=== PATIENT | male | born 1995 | race Hispanic/Latino ===

== ENCOUNTER 2017-05-03 17:22 | Emergency (ER) | payer SELFPAY ==
[2017-05-03] MEDS ORDERED: Adacel Vial IM ONE ×2 (17:45→17:50)
[2017-05-03 18:02] VITALS: PULSE 76; O2SAT 100
--- NOTE | 2017-05-03 18:07 | ERPHSYRPT ---
- History of Present Illness Time Seen by Provider: 05/03/17 18:03 Source: patient Exam Limitations: no limitations Patient Subjective Stated Complaint: PT STATES HE WAS MOVING SOME METAL MATERIALS FOR [employer] AND CUT HIS RIGHT MIDDLE FINGER. Triage Nursing Assessment: PT IS AOX3, RESPS ARE EASY AND NON LABORED, SKIN IS PWD, RADIAL PULSES ARE STRONG AND EQUAL. LACERATION NOTED TO THE RIGHT MIDDLE FINGER. MOBILITY AND SENSATION INTACT. BLEEDING IS CONTROLLED. Physician History: 21 y/o female comes to the ER after slicing his right index finger while moving a piece of metal. Pt admits to having some bleeding and minimal pain. Pt does not remember the last tetanus shot. Timing/Duration: today Quality: painful Severity: moderate Location: hands Possible Causes: other (moving a piece of metal) Modifying Factors: Improves With: other (none) Associated Symptoms: denies symptoms Allergies/Adverse Reactions: No Known Drug Allergies Allergy (Verified 05/03/17 17:35) Home Medications: No Reportable Medications [No Reported Medications] 05/03/17 [History] Hx Tetanus, Diphtheria Vaccination/Date Given: No Hx Influenza Vaccination/Date Given: No Hx Pneumococcal Vaccination/Date Given: No Immunizations Up to Date: Yes - Review of Systems Constitutional: No Fever, No Chills Eyes: No Symptoms Ears, Nose, & Throat: No Symptoms Respiratory: No Cough, No Dyspnea Cardiac: No Chest Pain, No Edema, No Syncope Abdominal/Gastrointestinal: No Abdominal Pain, No Nausea, No Vomiting, No Diarrhea Genitourinary Symptoms: No Dysuria Musculoskeletal: No Back Pain, No Neck Pain Skin: Other (laceration), No Rash Neurological: No Dizziness, No Focal Weakness, No Sensory Changes Psychological: No Symptoms Endocrine: No Symptoms All Other Systems: Reviewed and Negative - Past Medical History Pertinent Past Medical History: No - Past Surgical History Past Surgical History: No - Social History Smoking Status: Never smoker Exposure to second hand smoke: Yes Alcohol Use: None Drug Use: none Patient Lives Alone: No Significant Family History: no pertinent family hx - Nursing Vital Signs Nursing Vital Signs: Initial Vital Signs Pulse Rate 76 05/03/17 18:00 Respiratory Rate 16 05/03/17 18:00 Blood Pressure 134/60 05/03/17 18:00 O2 Sat by Pulse Oximetry 100 05/03/17 18:00 Pain Scale Pain Intensity 0 - Physical Exam General Appearance: no apparent distress, alert Eye Exam: PERRL/EOMI, eyes nml inspection Ears, Nose, Throat Exam: normal ENT inspection, pharynx normal, moist mucous membranes Neck Exam: normal inspection, non-tender, supple, full range of motion Respiratory Exam: normal breath sounds, lungs clear, No respiratory distress Cardiovascular Exam: regular rate/rhythm, normal heart sounds Gastrointestinal/Abdomen Exam: soft, mass, No tenderness Back Exam: normal inspection, normal range of motion, No CVA tenderness, No vertebral tenderness Extremity Exam: normal inspection, normal range of motion Neurologic Exam: alert, oriented x 3, cooperative, normal mood/affect, sensation nml, No motor deficits Skin Exam: normal color, warm, dry, laceration (2 cm linear laceration of right index finger) SpO2 Interpretation: normal SpO2: 100 Oxygen Delivery: Room Air Procedures - Laceration/Wound Repair Right Upper Anterior Medial Proximal Dorsal Hand Wound Length (cm): 2 Wound's Depth, Shape: superficial Wound Explored: clean Irrigated: Yes Hibiclens Prep: Yes Anesthesia: local, 1% Lidocaine Volume Anesthetic (ccs): 8 Wound Debrided: extensive Wound Repaired With: sutures Suture Size/Type: 4-0 Number of Sutures: 7 Layer Closure?: Yes - Course Nursing assessment & vital signs reviewed: Yes Ordered Tests: Medication Summary Discontinued Medications Generic Name Dose Route Start Last Admin Trade Name Manoloq PRN Reason Stop Dose Admin Bacitracin 0.9 gm 05/03/17 18:13 05/03/17 18:14 Baciguent Packet TP 05/03/17 18:14 0.9 gm STAT ONE Administration Diphtheria/Tetanus/Acell Pertussis 0.5 ml 05/03/17 17:45 05/03/17 17:51 Adacel Vial IM 05/03/17 17:46 0.5 ml .ONCE ONE Administration Diphtheria/Tetanus/Acell Pertussis Confirm 05/03/17 17:50 Adacel Vial Administered 05/03/17 17:51 Dose 0.5 ml IM .STK-MED ONE - Progress Progress: improved Progress Note: 05/03/17 18:06 See procedure note - Departure Time of Disposition: 18:06 Departure Disposition: Home Clinical Impression: Finger laceration Qualifiers: Encounter type: initial encounter Finger: index finger Damage to nail status: unspecified Foreign body presence: without foreign body Laterality: right Qualified Code(s): S61.210A - Laceration without foreign body of right index finger without damage to nail, initial encounter Condition: Stable Critical Care Time: No Referrals: DOCTOR,NO FAMILY [Primary Care Provider] - Instructions: Care for a Laceration After Repair Additional Instructions: Go to urgent care to have the stitches taken out in 7 days
[2017-05-03] MEDS ORDERED: BACIGUENT PACKET TP ONE (18:13)
[2017-05-03 18:15] VITALS: BP 127/70
== END 2017-05-03 18:15 | disposition home or self-care (01) ==
LOC: ED 17:22
PROC: 0HQFXZZ Repair Right Hand Skin, External Approach (ICD-10-PCS; principal; 2017-05-03)
DX: S61.210A Laceration without foreign body of right index finger without damage to nail, initial encounter (principal); W45.8XXA Other foreign body or object entering through skin, initial encounter; Y92.61 Building [any] under construction as the place of occurrence of the external cause
CPT/HCPCS: 12001; 90471; 90715; 99283; 99284

== ENCOUNTER 2025-02-17 08:17 | Emergency (ER) | payer OTHER ==
[2025-02-17 08:27] VITALS: TEMP 97.8
[2025-02-17] MEDS ORDERED: Norflex 60 MG/2 ML ONE (08:37)
[2025-02-17] MEDS: TORAdol 30 mg Injection IM ONE (08:37)
[2025-02-17] MEDS ORDERED: TORAdol 30 mg Injection ONE (08:37)
[2025-02-17] MEDS: Norflex 60 MG/2 ML IM ONE (08:38)
--- NOTE | 2025-02-17 09:54 | ERPHSYRPT ---
- History of Present Illness Time Seen by Provider: 02/17/25 08:20 Source: patient, family Exam Limitations: no limitations Patient Subjective Stated Complaint: Pt states "It all started in October, I went sledding with my boys and my lower back has hurt since. I am in therapy and it is not helping, I cannot sleep and it is getting worse." Triage Nursing Assessment: Pt presented alert and oriented X 3, skin pwd pt winces and tears up when he sits, feels better when he stands. Physician History: 29-year-old with history of hypertension, diabetes mellitus, chronic back pain which she was doing pretty good for a while until this October when he slid and his pain got worse. Pain is moderate to severe sharp shooting with radiation to right lower extremity with some tingling sensation but no weakness. No loss of bowel or bladder control, no saddle anesthesia. Patient has been evaluated outpatient and has completed physical therapy with no significant relief. Denies any new fall or trauma. Patient reports previously whenever he had pain muscle relaxants helped him a lot. He is not taking any muscle relaxants currently. Pain is not in the midline but in the right sacroiliac area. Allergies/Adverse Reactions: No Known Drug Allergies Allergy (Verified 09/07/22 07:29) Home Medications: Lisinopril 20 mg [Zestril 20 MG] 20 mg PO DAILY 02/17/25 [History] Hx Tetanus, Diphtheria Vaccination/Date Given: No Hx Influenza Vaccination/Date Given: No Hx Pneumococcal Vaccination/Date Given: No Immunizations Up to Date: No Travel Risk - International Travel Have you traveled outside of the country in past 3 weeks: No - Emerging Infectious Disease Are you exhibiting symptoms associated with any current EIDs: No - Review of Systems Constitutional: No Symptoms Ears, Nose, & Throat: No Symptoms Respiratory: No Symptoms Cardiac: No Symptoms Abdominal/Gastrointestinal: No Symptoms Genitourinary Symptoms: No Symptoms Musculoskeletal: Back Pain Skin: No Symptoms Neurological: No Symptoms Hematologic/Lymphatic: No Symptoms - Past Medical History Pertinent Past Medical History: Yes Neurological History: No Pertinent History Cardiac History: Hypertension Respiratory History: Sleep Apnea Endocrine Medical History: Diabetes Type I, Other Musculoskeletal History: No Pertinent History Other Medical History: FATTY LIVER, MILD LIVER CIRRHOSIS, - Past Surgical History Past Surgical History: No Significant Family History: no pertinent family hx - Social History Smoking Status: Never smoker Exposure to second hand smoke: No Drug Use: none - Social Determinants of Health Will the patient participate in the screening: Declined to provide - Nursing Vital Signs Nursing Vital Signs: Initial Vital Signs Temperature 97.8 F 02/17/25 08:22 Pulse Rate 58 L 02/17/25 08:22 Respiratory Rate 18 02/17/25 08:22 Blood Pressure 154/108 02/17/25 08:22 O2 Sat by Pulse Oximetry 98 02/17/25 08:22 Pain Scale Pain Intensity 4 - Physical Exam General Appearance: no apparent distress Eye Exam: PERRL/EOMI Neck Exam: normal inspection, supple, full range of motion Respiratory Exam: normal breath sounds, lungs clear Cardiovascular Exam: regular rate/rhythm, normal heart sounds Gastrointestinal Exam: soft, normal bowel sounds, No tenderness Back Exam: normal inspection, decreased range of motion, muscle spasm, point tenderness (Right sacroiliac area), other (Straight leg raising test positive at 45 degrees on the right), No vertebral tenderness Extremity Exam: normal inspection, normal range of motion Neurologic Exam: alert, oriented x 3, cooperative, normal mood/affect, sensation nml, No motor deficits Skin Exam: normal color SpO2 Interpretation: normal SpO2: 99 O2 Delivery: Room Air Ordered Tests: Active Orders 24 hr Category Date Time Status LUMBAR SPINE W/O [CT] Stat Exams 02/17/25 08:36 Completed Medication Summary Discontinued Medications Generic Name Dose Route Start Last Admin Trade Name Freq PRN Reason Stop Dose Admin Ketorolac Tromethamine 30 mg 02/17/25 08:36 02/17/25 08:37 Ketorolac Tromethamine 30 Mg/Ml Inj IM 02/17/25 08:37 30 mg STAT ONE Administration Ketorolac Tromethamine Confirm 02/17/25 08:37 Ketorolac Tromethamine 30 Mg/Ml Inj Administered 02/17/25 08:38 Dose 30 mg .ROUTE .STK-MED ONE Orphenadrine Citrate 60 mg 02/17/25 08:36 02/17/25 08:38 Orphenadrine Citrate 60 Mg/2 Ml Vial IM 02/17/25 08:37 60 mg STAT ONE Administration Orphenadrine Citrate Confirm 02/17/25 08:37 Orphenadrine Citrate 60 Mg/2 Ml Vial Administered 02/17/25 08:38 Dose 60 mg .ROUTE .STK-MED ONE - Progress Progress: improved, pain not gone completely, re-examined Progress Note: 02/17/25 10:40 29-year-old is evaluated in the ER for acute worsening of low back pain after he was sledding with his kids this October 4 months ago. Patient has seen outpatient primary care and has completed physical therapy which does not seem helping. Patient would possibly have outpatient MRI now. He has negative neuroexam in lower extremities. No cauda equina symptoms. Pain is not in the midline but more of the right sacroiliac area. I have obtained CT lumbar spine without contrast which showed L3-S1 broad based disc osteophyte complex without any fracture subluxation, spinal stenosis or any other bony lesions. He is given Toradol and Norflex, on reevaluation is feeling much improved and ambulating in the ER without assistance. Neuroexam remained negative in lower extremities. I would prescribe him Flexeril and NSAIDs to go home and recommended outpatient follow-up with primary care for further evaluation and outpatient MRI for better view/understanding of pathology. Discussed signs symptoms of worsening needing return to ER which she seems understanding. Stable for discharge. Complexity of problems addressed: Moderate acute Complexity of data reviewed/analyzed: Moderate Risk of complication: Low to moderate Medical Desision Making - Independent Historian Additional History obtained from: Spouse - Diagnostic Testing Diagnostic test were ordered, analyzed, and reviewed by me: Yes Radiological Interpretation: Reviewed by me - Risk of complications The pt has a mod risk of morbidity or mortality based on: Need for prescription drug management - Departure Departure Disposition: Home Clinical Impression: Acute exacerbation of chronic low back pain Condition: Stable Critical Care Time: No Referrals: BOYD PEPE MD [Primary Care Provider, [facility]] - Follow up with PCP 1 day Instructions: Low Back Pain (DC), Sciatica (DC) Additional Instructions: Tylenol/ibuprofen as needed Follow-up with your primary care for reevaluation and outpatient MRI. Return to ER for intractable pain, numbness/weakness of lower extremities/loss of bowel or bladder control/saddle anesthesia etc. Prescriptions: Ibuprofen 600 mg PO Q6HPRN PRN 10 Days #20 tablet PRN Reason: Pain Cyclobenzaprine HCl 10 mg [Flexeril 10 MG] 10 mg PO TID #30 tablet
--- NOTE | 2025-02-17 10:32 | XRAY ---
Indication: Pain. Multiple contiguous axial images obtained through the lumbar spine. Sagittal and coronal reformatted images obtained. Comparison: None Minimal/mild broad-based disc osteophyte complex at L3-S1 levels. No acute fracture, suspicious bony lesions, or spinal canal stenosis. Facets are symmetric. Sagittal and coronal reformatted images demonstrates normal alignment with vertebral body heights/disc spaces maintained. Visualized noncontrasted soft tissues are unremarkable. Impression: L3-S1 broad-based disc osteophyte complex. Outpatient MRI may yield further information if clinically warranted. Remaining CT lumbar spine negative.
[2025-02-17 11:02] VITALS: BP 140/84; PULSE 70; RESP 18
[2025-02-17 11:03] VITALS: O2SAT 99
== END 2025-02-17 11:06 | disposition home or self-care (01) ==
LOC: ED 08:17
DX: G89.29 Other chronic pain (principal); M54.50 Low back pain, unspecified; Z79.899 Other long term (current) drug therapy
CPT/HCPCS: 72131; 96372; 99284; J1885; J2360